=== PATIENT | female | born 1970 | race American Indian/Alaskan Native ===

== ENCOUNTER 2020-06-17 16:15 | Emergency (ER) | payer SELFPAY ==
[2020-06-17 16:59] LABS: Basophils % (Auto) 0.1 % (0.0-1.8); Eosinophils # (Auto) 0.1 K/mm3 (0.0-0.4); Eosinophils % (Auto) 2.6 % (0.0-4.3); Hematocrit 35.9 % (30.3-42.9); Hemoglobin 11.8 gm/dl (10.1-14.3); Lymphocytes # (Auto) 1.3 K/mm3 (1.2-5.4); Lymphocytes % (Auto) 36.3 % (13.4-35.0); Mean Corpuscular HGB Conc 33 % (30-34); Mean Corpuscular Volume 89 fl (79-97); Monocytes # (Auto) 0.4 K/mm3 (0.0-0.8); Monocytes % (Auto) 9.7 % (0.0-7.3); Platelet Count 236 K/mm3 (140-440); Red Blood Count 4.03 M/mm3 (3.65-5.03); Red Cell Distribution Width 14.5 % (13.2-15.2)
[2020-06-17 17:08] LABS: Alanine Aminotransferase 14 units/L (7-56); Blood Urea Nitrogen 8 mg/dL (7-17); Calcium 8.8 mg/dL (8.4-10.2); Hemolysis Index 19
[2020-06-17 17:09] LABS: BUN/Creatinine Ratio 11
[2020-06-17 20:04] VITALS: BP 157/88
[2020-06-17] MEDS ORDERED: IBUPROFEN 800 MG TAB PO ONE (20:14)
--- NOTE | 2020-06-17 20:20 | Emergency Department Report ---
ED Abdominal Pain HPI - General Chief Complaint: Abdominal Pain Stated Complaint: CHEST/RT SIDE PAIN/HBP Time Seen by Provider: 06/17/20 20:09 Source: patient Mode of arrival: Ambulatory Limitations: No Limitations - History of Present Illness Initial Comments: Patient is a 50-year-old F Romanian female with a past medical history of hypertension who is presenting with right upper quadrant pain. Patient states pain is been present since just before (approximately a week and a half), and has been progressively worsening. She states is a tight sensation as though something is pressing into her right upper quadrant. She denies any fever nausea vomiting diarrhea dysuria vaginal bleeding vaginal discharge. States the pain is constant but at times does get worse when she moves and bends over. States sometimes the pain worsens at random. States that most of Day her abdomen was quite tender. Improves With: medication (States she has been taking aspirin which does relieve pain) - Related Data Previous Rx's Medication Instructions Recorded Last Taken Type Pantoprazole [Protonix] 40 mg PO QDAY #30 tablet 06/17/20 Unknown Rx traMADoL [Ultram] 50 mg PO Q6HR PRN #12 tablet 06/17/20 Unknown Rx Allergies Allergy/AdvReac Type Severity Reaction Status Date / Time No Known Allergies Allergy Unverified 06/17/20 16:20 ED Review of Systems ROS: Stated complaint: CHEST/RT SIDE PAIN/HBP Other details as noted in HPI Comment: All other systems reviewed and negative ED Past Medical Hx - Past Medical History Previous Medical History?: Yes Hx Hypertension: Yes Hx Psychiatric Treatment: Yes - Medications Home Medications: Home Medications Medication Instructions Recorded Confirmed Last Taken Type Pantoprazole [Protonix] 40 mg PO QDAY #30 tablet 06/17/20 Unknown Rx traMADoL [Ultram] 50 mg PO Q6HR PRN #12 tablet 06/17/20 Unknown Rx ED Physical Exam - General Limitations: No Limitations General appearance: alert, in no apparent distress - Head Head exam: Present: atraumatic, normocephalic - Eye Eye exam: Present: normal appearance - ENT ENT exam: Present: mucous membranes moist - Neck Neck exam: Present: normal inspection - Respiratory Respiratory exam: Present: normal lung sounds bilaterally. Absent: respiratory distress, wheezes, rales - Cardiovascular Cardiovascular Exam: Present: regular rate, normal rhythm. Absent: systolic murmur, diastolic murmur, rubs, gallop - GI/Abdominal GI/Abdominal exam: Present: soft, tenderness (RUQ pain), normal bowel sounds. Absent: distended, guarding, rebound - Extremities Exam Extremities exam: Present: normal inspection - Back Exam Back exam: Present: normal inspection - Neurological Exam Neurological exam: Present: alert, oriented X3 - Psychiatric Psychiatric exam: Present: normal affect, normal mood - Skin Skin exam: Present: warm, dry, intact, normal color. Absent: rash ED Course Vital Signs 06/17/20 16:23 Temperature 98.1 F Pulse Rate 76 Respiratory 18 Rate Blood Pressure 157/88 O2 Sat by Pulse 99 Oximetry ED Medical Decision Making - Lab Data Result diagrams: 06/17/20 16:32 06/17/20 16:32 - Radiology Data [facility] [address] [place] [address] Ultrasound Report Signed Patient: EDWIGE REYNOLDS MR#: [id number] : 1970 Acct:[id number] Age/Sex: 50 / F ADM Date: 06/17/20 Loc: ED Attending Dr: Ordering Physician: BARRERA BURRELL MD Date of Service: 06/17/20 Procedure(s): US abdomen limited Accession Number(s): [id number] cc: BARRERA BURRELL MD ULTRASOUND ABDOMEN, LIMITED (RIGHT UPPER QUADRANT) INDICATION / CLINICAL INFORMATION: RUQ pain. COMPARISON: None available. FINDINGS: PANCREAS: Visualized portion shows no significant abnormality. LIVER: No significant abnormality. GALLBLADDER: Contracted, limiting evaluation. No definite evidence of cholelithiasis or other significant abnormality. BILE DUCTS: No significant abnormality. Common bile duct measures 3 mm. FREE FLUID: None. ADDITIONAL FINDINGS: Abdominal aorta measures at the upper limits of normal and tapers distally. IMPRESSION: 1. No significant sonographic abnormality of the right upper quadrant. Signer Name: Bobo Portillo MD Signed: 06/17/2020 9:28 PM Workstation Name: [id number] AXR nonobstructive bowel gas pattern - Medical Decision Making Patient is a 50-year-old F Romanian female has had several weeks of right upper quadrant pain. Ultrasound was negative for gallstones or gallbladder abnormality. Bowel showed no increased gas pattern in this area. Is possible that the patient has a duodenal ulcer causing her discomfort systems is pinpoint. Did not appear to be any lung findings causing the pain. Patient referred to GI given medication for symptomatic relief. Critical care attestation.: If time is entered above; I have spent that time in minutes in the direct care of this critically ill patient, excluding procedure time. ED Disposition Clinical Impression: Abdominal pain, PUD (peptic ulcer disease) Disposition: DC-01 TO HOME OR SELFCARE Is pt being admited?: No Condition: Stable Instructions: Abdominal Pain (ED), Peptic Ulcer, [id number] Referrals: [facility] [Provider Group] - 3-5 Days Time of Disposition: 22:12
--- NOTE | 2020-06-17 21:32 | Ultrasound Report ---
ULTRASOUND ABDOMEN, LIMITED (RIGHT UPPER QUADRANT) INDICATION / CLINICAL INFORMATION: RUQ pain. COMPARISON: None available. FINDINGS: PANCREAS: Visualized portion shows no significant abnormality. LIVER: No significant abnormality. GALLBLADDER: Contracted, limiting evaluation. No definite evidence of cholelithiasis or other signifi cant abnormality. BILE DUCTS: No significant abnormality. Common bile duct measures 3 mm. FREE FLUID: None. ADDITIONAL FINDINGS: Abdominal aorta measures at the upper limits of normal and tapers distally. IMPRESSION: 1. No significant sonographic abnormality of the right upper quadrant. Signer Name: Bobo Portillo MD Signed: 06/17/2020 9:28 PM Workstation Name: [id number]
--- NOTE | 2020-06-17 21:59 | XRay Report ---
ABDOMEN 2 VIEW(S) WITH PA CHEST INDICATION / CLINICAL INFORMATION: RUQ pain. COMPARISON: None available. FINDINGS: TUBES / LINES: None. BOWEL GAS PATTERN: No significant abnormality. FREE AIR / EXTRALUMINAL GAS: None seen. ADDITIONAL FINDINGS: No significant additional findings. CHEST: Visualized chest shows no significant abnormality. IMPRESSION: 1. No significant abnormality. Signer Name: Bobo Portillo MD Signed: 06/17/2020 9:55 PM Workstation Name: [id number]
== END 2020-06-17 22:29 | disposition home or self-care (01) ==
LOC: ED 16:15
DX: K27.9 Peptic ulcer, site unspecified, unspecified as acute or chronic, without hemorrhage or perforation (principal); R10.9 Unspecified abdominal pain; I10 Essential (primary) hypertension; Z79.899 Other long term (current) drug therapy
CPT/HCPCS: 36415; 74022; 76705; 80053; 83690; 85025